=== PATIENT | male | born 1940 | race Caucasian/White ===

== ENCOUNTER 2019-07-26 11:08 | Outpatient (RCR) | payer MEDICARE, MEDICAID, SELFPAY ==
[2019-07-26 13:00] VITALS: BP 139/82; BP 155/87; PULSE 81; RESP 16; O2SAT 97; BMI 38.5
[2019-07-26 13:02] VITALS: BP 106/76
== END 2019-10-24 23:59 | disposition home or self-care (01) ==
PROVIDERS: Visit Provider Internal Medicine Cardiovascular Disease
DX: Z95.2 Presence of prosthetic heart valve (principal)
CPT/HCPCS: 93798

== ENCOUNTER 2019-10-30 10:08 | Outpatient (CLI) | payer MEDICARE, SELFPAY ==
[2019-10-30 10:30] LABS: Basophils Absolute Auto 0.12 K/mm3 (0.00-0.10); Basophils Percent Auto 1.4 % (0.0-1.0); Eosinophils Absolute Auto 0.78 K/mm3 (0.02-0.50); Eosinophils Percent Auto 9.1 % (1.0-6.0); Hematocrit 52.5 % (37.0-46.0); Hemoglobin 16.4 g/dL (12.4-15.3); Immature Granulocyte Absolute 0.05 K/mm3 (0.00-0.00); Immature Granulocyte Percent A 0.6 % (0.0-0.0); Lymphocytes Absolute Auto 1.48 K/mm3 (1.10-4.50); Lymphocytes Percent Auto 17.3 % (18.0-42.0); Mean Corpuscular HGB Conc 31.2 g/dL (32.0-36.0); Mean Corpuscular Volume 86.3 fL (78.0-102.0); Mean Platelet Volume 11.6 fl (8.7-11.0); Monocytes Absolute Auto 1.09 K/mm3 (0.10-0.90); Monocytes Percent Auto 12.8 % (2.0-11.0); Neutrophils Percent Auto 58.8 % (50.0-70.0); Platelet Count Result 155 K/mm3 (150-420); Red Blood Count 6.08 M/mm3 (4.70-6.10); White Blood Count 8.5 K/mm3 (4.8-10.8)
[2019-10-30 10:46] LABS: Hemoglobin A1C 7.9 % (<5.7)
[2019-10-30 10:58] LABS: BNP 221 pg/mL (0-100)
[2019-10-30 11:17] LABS: Alanine Aminotransferase 26 U/L (16-63); Albumin Level 3.9 g/dL (3.4-5.0); Alkaline Phosphatase 51 U/L (46-116); Anion Gap 15.9 mmol/L (7-16); Aspartate Amino Transferase 27 U/L (15-37); Bilirubin,Total 0.7 mg/dL (0.00-1.00); Blood Urea Nitrogen 34 mg/dL (7-18); Carbon Dioxide 27 mmol/L (21-32); Chloride 105 mmol/L (98-108); Estimated Glomerular Filt Rate 37; Glucose 187 mg/dL (70-99); Osmolality Calculated 308 mOsm/kg (285-295); Potassium 4.9 mmol/L (3.5-5.1); Sodium 143 mmol/L (136-145); Total Protein 8.2 g/dL (6.4-8.2)
== END 2019-10-30 10:09 | disposition home or self-care (01) ==
LOC: CHSLAB 10:12
PROVIDERS: PCP Internal Medicine; Visit Provider Internal Medicine
DX: I50.9 Heart failure, unspecified (principal); E11.9 Type 2 diabetes mellitus without complications
CPT/HCPCS: 36415; 80053; 83036; 83880; 85025

== ENCOUNTER 2019-10-31 10:00 | Outpatient (RCR) | payer MEDICARE, MEDICAID, SELFPAY ==
[2019-10-25 00:04] VITALS: BP 106/76; PULSE 81; RESP 16; O2SAT 97; BMI 38.5
== END 2019-11-14 12:48 | disposition home or self-care (01) ==
PROVIDERS: PCP Internal Medicine; Visit Provider Internal Medicine Cardiovascular Disease
DX: Z95.2 Presence of prosthetic heart valve (principal)
CPT/HCPCS: 93798

== ENCOUNTER 2020-01-30 11:34 | Outpatient (CLI) | payer MEDICARE, SELFPAY ==
[2020-01-30 12:16] LABS: Hemoglobin A1C 7.3 % (<5.7)
== END 2020-01-30 11:35 | disposition home or self-care (01) ==
LOC: CHSLAB 11:36
PROVIDERS: PCP Internal Medicine; Visit Provider Internal Medicine
DX: E11.9 Type 2 diabetes mellitus without complications (principal)
CPT/HCPCS: 36415; 83036

== ENCOUNTER 2020-05-05 10:27 | Outpatient (CLI) | payer MEDICARE, MEDICAID, SELFPAY ==
[2020-05-05 10:38] LABS: Basophils Absolute Auto 0.09 K/mm3 (0.00-0.10); Basophils Percent Auto 0.9 % (0.0-1.0); Eosinophils Absolute Auto 0.91 K/mm3 (0.02-0.50); Eosinophils Percent Auto 9.2 % (1.0-6.0); Hemoglobin 16.3 g/dL (12.4-15.3); Immature Granulocyte Absolute 0.05 K/mm3 (0.00-0.00); Immature Granulocyte Percent A 0.5 % (0.0-0.0); Lymphocytes Absolute Auto 1.26 K/mm3 (1.10-4.50); Lymphocytes Percent Auto 12.7 % (18.0-42.0); Mean Corpuscular Hemoglobin 28.6 pg (27.0-31.0); Mean Corpuscular Volume 89.6 fL (78.0-102.0); Mean Platelet Volume 10.8 fl (8.7-11.0); Monocytes Absolute Auto 1.14 K/mm3 (0.10-0.90); Monocytes Percent Auto 11.5 % (2.0-11.0); Neutrophils Absolute Auto 6.5 K/mm3 (1.7-7.2); Neutrophils Percent Auto 65.2 % (50.0-70.0); Platelet Count Result 159 K/mm3 (150-420); Red Blood Count 5.69 M/mm3 (4.70-6.10); Red Cell Distribution Width 13.6 % (11.6-14.4); White Blood Count 9.9 K/mm3 (4.8-10.8)
[2020-05-05 11:05] LABS: Hemoglobin A1C 8.4 % (<5.7)
[2020-05-05 11:16] LABS: Alanine Aminotransferase 38 U/L (16-63); Albumin Level 3.6 g/dL (3.4-5.0); Alkaline Phosphatase 43 U/L (46-116); Anion Gap 9 mmol/L (8-16); Aspartate Amino Transferase 35 U/L (15-37); Bilirubin,Total 0.9 mg/dL (0.00-1.00); Blood Urea Nitrogen 28 mg/dL (7-18); Calcium 10.5 mg/dL (8.5-10.1); Carbon Dioxide 28 mmol/L (21-32); Chloride 103 mmol/L (98-108); Estimated Glomerular Filt Rate 37; Glucose 175 mg/dL (70-99); Osmolality Calculated 299 mOsm/kg (285-295); Potassium 4.7 mmol/L (3.5-5.1); Sodium 140 mmol/L (136-145); Total Protein 7.9 g/dL (6.4-8.2)
[2020-05-05 12:01] LABS: BNP 211 pg/mL (0-100)
== END 2020-05-05 10:28 | disposition home or self-care (01) ==
PROVIDERS: PCP Internal Medicine; Visit Provider Internal Medicine
DX: I12.9 Hypertensive chronic kidney disease with stage 1 through stage 4 chronic kidney disease, or unspecified chronic kidney disease (principal); N18.2 Chronic kidney disease, stage 2 (mild); E11.9 Type 2 diabetes mellitus without complications; I50.9 Heart failure, unspecified
CPT/HCPCS: 36415; 80053; 83036; 83880; 85025

== ENCOUNTER 2020-08-14 08:55 | Outpatient (CLI) | payer MEDICARE, SELFPAY ==
[2020-08-14 10:02] LABS: Hemoglobin A1C 7.5 % (<5.7)
[2020-08-14 10:43] LABS: Alanine Aminotransferase 29 U/L (16-63); Albumin Level 4.1 g/dL (3.4-5.0); Alkaline Phosphatase 41 U/L (46-116); Anion Gap 9 mmol/L (8-16); Aspartate Amino Transferase 30 U/L (15-37); Bilirubin,Total 0.9 mg/dL (0.00-1.00); Blood Urea Nitrogen 31 mg/dL (7-18); Calcium 9.9 mg/dL (8.5-10.1); Carbon Dioxide 29 mmol/L (21-32); Chloride 104 mmol/L (98-108); Estimated Glomerular Filt Rate 41; Glucose 101 mg/dL (70-99); Osmolality Calculated 300 mOsm/kg (285-295); Potassium 4.5 mmol/L (3.5-5.1); Sodium 142 mmol/L (136-145); Total Protein 8.4 g/dL (6.4-8.2)
== END 2020-08-14 08:56 | disposition home or self-care (01) ==
LOC: CHSLAB 08:57
PROVIDERS: PCP Internal Medicine; Visit Provider Internal Medicine
DX: E11.9 Type 2 diabetes mellitus without complications (principal)
CPT/HCPCS: 36415; 80053; 83036

== ENCOUNTER 2020-12-16 14:25 | Outpatient (CLI) | payer MEDICARE, SELFPAY ==
[2020-12-16 14:56] LABS: Alanine Aminotransferase 23 U/L (16-63); Albumin Level 3.2 g/dL (3.4-5.0); Alkaline Phosphatase 50 U/L (46-116); Anion Gap 8 mmol/L (8-16); Aspartate Amino Transferase 35 U/L (15-37); Bilirubin,Total 0.7 mg/dL (0.00-1.00); Blood Urea Nitrogen 30 mg/dL (7-18); Calcium 9.6 mg/dL (8.5-10.1); Carbon Dioxide 28 mmol/L (21-32); Chloride 101 mmol/L (98-108); Estimated Glomerular Filt Rate 36; Glucose 109 mg/dL (70-99); Osmolality Calculated 291 mOsm/kg (285-295); Potassium 4.7 mmol/L (3.5-5.1); Sodium 137 mmol/L (136-145); Total Protein 7.9 g/dL (6.4-8.2)
== END 2020-12-16 14:26 | disposition home or self-care (01) ==
LOC: CHSLAB 14:28
PROVIDERS: PCP Internal Medicine; Visit Provider Internal Medicine
DX: R79.9 Abnormal finding of blood chemistry, unspecified (principal); E11.9 Type 2 diabetes mellitus without complications
CPT/HCPCS: 36415; 80053; 83036

== ENCOUNTER 2021-01-01 12:08 | Outpatient (CLI) | payer MEDICARE, SELFPAY ==
[2021-01-01 12:24] LABS: Eosinophils Absolute Auto 0.07 K/mm3 (0.02-0.50); Eosinophils Percent Auto 0.7 % (1.0-6.0); Hematocrit 52.1 % (37.0-46.0); Hemoglobin 16.6 g/dL (12.4-15.3); Immature Granulocyte Absolute 0.15 K/mm3 (0.00-0.00); Immature Granulocyte Percent A 1.5 % (0.0-0.0); Lymphocytes Absolute Auto 1.29 K/mm3 (1.10-4.50); Lymphocytes Percent Auto 12.7 % (18.0-42.0); Mean Corpuscular HGB Conc 31.9 g/dL (32.0-36.0); Mean Corpuscular Hemoglobin 27.7 pg (27.0-31.0); Mean Platelet Volume 10.3 fl (8.7-11.0); Monocytes Absolute Auto 1.17 K/mm3 (0.10-0.90); Monocytes Percent Auto 11.5 % (2.0-11.0); Neutrophils Absolute Auto 7.4 K/mm3 (1.7-7.2); Neutrophils Percent Auto 72.6 % (50.0-70.0); Platelet Count Result 306 K/mm3 (150-420); Red Blood Count 5.99 M/mm3 (4.70-6.10); Red Cell Distribution Width 14.1 % (11.6-14.4); White Blood Count 10.2 K/mm3 (4.8-10.8)
[2021-01-01 13:11] LABS: Alanine Aminotransferase 10 U/L (16-63); Albumin Level 2.9 g/dL (3.4-5.0); Alkaline Phosphatase 68 U/L (46-116); Anion Gap 11 mmol/L (8-16); Aspartate Amino Transferase 27 U/L (15-37); Bilirubin,Total 0.9 mg/dL (0.00-1.00); Blood Urea Nitrogen 31 mg/dL (7-18); Calcium 9.6 mg/dL (8.5-10.1); Carbon Dioxide 26 mmol/L (21-32); Chloride 100 mmol/L (98-108); Estimated Glomerular Filt Rate 47; Glucose 169 mg/dL (70-99); Osmolality Calculated 294 mOsm/kg (285-295); Potassium 4.9 mmol/L (3.5-5.1); Sodium 137 mmol/L (136-145); Total Protein 7.8 g/dL (6.4-8.2)
[2021-01-01 14:00] LABS: NT Pro B Type Natriuretic Pept 1536
== END 2021-01-01 12:09 | disposition home or self-care (01) ==
LOC: CHSLAB 12:10
PROVIDERS: PCP Internal Medicine; Visit Provider Internal Medicine
DX: R79.89 Other specified abnormal findings of blood chemistry (principal); I50.9 Heart failure, unspecified
CPT/HCPCS: 36415; 80053; 83880; 85025

== ENCOUNTER 2021-05-11 11:27 | Outpatient (CLI) | payer MEDICARE, SELFPAY ==
[2021-05-11 11:40] LABS: Basophils Absolute Auto 0.07 K/mm3 (0.00-0.10); Basophils Percent Auto 0.9 % (0.0-1.0); Eosinophils Absolute Auto 0.58 K/mm3 (0.02-0.50); Eosinophils Percent Auto 7.1 % (1.0-6.0); Hemoglobin 14.4 g/dL (12.4-15.3); Immature Granulocyte Absolute 0.02 K/mm3 (0.00-0.00); Immature Granulocyte Percent A 0.2 % (0.0-0.0); Lymphocytes Absolute Auto 1.34 K/mm3 (1.10-4.50); Lymphocytes Percent Auto 16.3 % (18.0-42.0); Mean Corpuscular HGB Conc 30.6 g/dL (32.0-36.0); Mean Corpuscular Volume 78.3 fL (78.0-102.0); Mean Platelet Volume 10.3 fl (8.7-11.0); Monocytes Absolute Auto 1.05 K/mm3 (0.10-0.90); Monocytes Percent Auto 12.8 % (2.0-11.0); Neutrophils Absolute Auto 5.1 K/mm3 (1.7-7.2); Neutrophils Percent Auto 62.7 % (50.0-70.0); Platelet Count Result 231 K/mm3 (150-420); Red Cell Distribution Width 14.7 % (11.6-14.4); White Blood Count 8.2 K/mm3 (4.8-10.8)
[2021-05-11 13:11] LABS: Alanine Aminotransferase 38 U/L (16-63); Albumin Level 3.7 g/dL (3.4-5.0); Alkaline Phosphatase 69 U/L (46-116); Anion Gap 10 mmol/L (8-16); Aspartate Amino Transferase 35 U/L (15-37); Bilirubin,Total 0.5 mg/dL (0.00-1.00); Blood Urea Nitrogen 29 mg/dL (7-18); Calcium 9.8 mg/dL (8.5-10.1); Carbon Dioxide 26 mmol/L (21-32); Chloride 103 mmol/L (98-108); Estimated Glomerular Filt Rate 53; Glucose 170 mg/dL (70-99); Osmolality Calculated 297 mOsm/kg (285-295); Potassium 4.9 mmol/L (3.5-5.1); Sodium 139 mmol/L (136-145); Total Protein 8.1 g/dL (6.4-8.2)
[2021-05-11 15:14] LABS: Hemoglobin A1C 6.4 % (<5.7)
== END 2021-05-11 11:28 | disposition home or self-care (01) ==
LOC: CHSLAB 11:29
PROVIDERS: PCP Internal Medicine; Visit Provider Internal Medicine
DX: E11.9 Type 2 diabetes mellitus without complications (principal); N18.2 Chronic kidney disease, stage 2 (mild)
CPT/HCPCS: 36415; 80053; 83036; 85025

== ENCOUNTER 2021-05-25 14:43 | Outpatient (CLI) | payer MEDICARE, SELFPAY ==
[2021-05-25 15:04] LABS: Basophils Absolute Auto 0.09 K/mm3 (0.00-0.10); Basophils Percent Auto 1.2 % (0.0-1.0); Eosinophils Absolute Auto 0.66 K/mm3 (0.02-0.50); Eosinophils Percent Auto 8.5 % (1.0-6.0); Hematocrit 46.5 % (37.0-46.0); Hemoglobin 14.3 g/dL (12.4-15.3); Immature Granulocyte Absolute 0.03 K/mm3 (0.00-0.00); Immature Granulocyte Percent A 0.4 % (0.0-0.0); Lymphocytes Absolute Auto 1.28 K/mm3 (1.10-4.50); Lymphocytes Percent Auto 16.6 % (18.0-42.0); Mean Corpuscular HGB Conc 30.8 g/dL (32.0-36.0); Mean Corpuscular Volume 77.9 fL (78.0-102.0); Mean Platelet Volume 10.4 fl (8.7-11.0); Monocytes Absolute Auto 1.03 K/mm3 (0.10-0.90); Monocytes Percent Auto 13.3 % (2.0-11.0); Neutrophils Absolute Auto 4.6 K/mm3 (1.7-7.2); Platelet Count Result 228 K/mm3 (150-420); Red Blood Count 5.97 M/mm3 (4.70-6.10); Red Cell Distribution Width 15.8 % (11.6-14.4); White Blood Count 7.7 K/mm3 (4.8-10.8)
[2021-05-25 16:13] LABS: Alanine Aminotransferase 29 U/L (16-63); Albumin Level 3.4 g/dL (3.4-5.0); Alkaline Phosphatase 63 U/L (46-116); Anion Gap 13 mmol/L (8-16); Aspartate Amino Transferase 28 U/L (15-37); Bilirubin,Total 0.4 mg/dL (0.00-1.00); Blood Urea Nitrogen 36 mg/dL (7-18); Calcium 9.4 mg/dL (8.5-10.1); Carbon Dioxide 25 mmol/L (21-32); Chloride 104 mmol/L (98-108); Estimated Glomerular Filt Rate 52; Glucose 120 mg/dL (70-99); Osmolality Calculated 303 mOsm/kg (285-295); Potassium 4.6 mmol/L (3.5-5.1); Sodium 142 mmol/L (136-145); Total Protein 7.5 g/dL (6.4-8.2)
[2021-05-25 16:19] LABS: Prostate Specific Antigen 0.1 ng/mL (< OR = 4.0)
== END 2021-05-25 14:44 | disposition home or self-care (01) ==
PROVIDERS: PCP Internal Medicine; Visit Provider Internal Medicine
DX: N39.0 Urinary tract infection, site not specified (principal); Z85.46 Personal history of malignant neoplasm of prostate
CPT/HCPCS: 36415; 80053; 84153; 85025; 87077; 87086; 87088; 87186

== ENCOUNTER 2021-08-26 08:10 | Outpatient (CLI) | payer MEDICARE, SELFPAY ==
[2021-08-26 08:22] LABS: Hematocrit 51.1 % (37.0-46.0); Hemoglobin 15.8 g/dL (12.4-15.3); Mean Corpuscular HGB Conc 30.9 g/dL (32.0-36.0); Mean Corpuscular Hemoglobin 25.3 pg (27.0-31.0); Mean Corpuscular Volume 81.8 fL (78.0-102.0); Mean Platelet Volume 10.1 fl (8.7-11.0); Platelet Count Result 206 K/mm3 (150-420); Red Blood Count 6.25 M/mm3 (4.70-6.10); Red Cell Distribution Width 18.1 % (11.6-14.4); White Blood Count 8.4 K/mm3 (4.8-10.8)
[2021-08-26 08:42] LABS: Hemoglobin A1C 6.5 % (<5.7)
[2021-08-26 09:10] LABS: Band Neutrophils Percent 0 % (0-6); Eosinophils Absolute Manual 0.75 K/mm3 (0.02-0.5); Eosinophils Percent Manual 9 % (1-6); Lymphocytes Absolute Manual 1.76 K/mm3 (1.1-4.5); Lymphocytes Percent Manual 21 % (18-44); Monocytes Absolute Manual 0.58 K/mm3 (0.1-0.90); Monocytes Percent Manual 7 % (3-9); Neutrophils Absolute Manual 5.29 K/mm3 (1.3-6.7); Neutrophils Percent Manual 63 % (46-73); Platelet Estimate Adequate (Adequate); Total Cells Counted 100
[2021-08-26 09:20] LABS: Alanine Aminotransferase 24 U/L (16-63); Albumin Level 3.8 g/dL (3.4-5.0); Alkaline Phosphatase 55 U/L (46-116); Anion Gap 10 mmol/L (8-16); Aspartate Amino Transferase 26 U/L (15-37); Bilirubin,Total 0.7 mg/dL (0.00-1.00); Blood Urea Nitrogen 37 mg/dL (7-18); Calcium 10.4 mg/dL (8.5-10.1); Carbon Dioxide 28 mmol/L (21-32); Chloride 103 mmol/L (98-108); Cholesterol 121 mg/dL (0-200); Estimated Glomerular Filt Rate 46; Glucose 126 mg/dL (70-99); HDL Direct 47 mg/dL (40-60); LDL Cholesterol Calculated 58 mg/dL (<130); Osmolality Calculated 302 mOsm/kg (285-295); Potassium 4.6 mmol/L (3.5-5.1); Sodium 141 mmol/L (136-145); Total Protein 8.3 g/dL (6.4-8.2); Triglycerides 78 mg/dL (0-150)
== END 2021-08-26 08:11 | disposition home or self-care (01) ==
LOC: CHSLAB 08:11
PROVIDERS: PCP Internal Medicine; Visit Provider Internal Medicine
DX: E11.9 Type 2 diabetes mellitus without complications (principal)
CPT/HCPCS: 36415; 80053; 80061; 83036; 85025

== ENCOUNTER 2021-09-24 09:20 | Inpatient (IN) | payer MEDICARE, MEDICAID, SELFPAY ==
[2021-09-24] VITALS (12 sets, daily range): BP systolic 71–103; BP diastolic 46–76; PULSE 91–115; RESP 16–20; TEMP 36.6–38.2; O2SAT 90–99; BMI 29.5
--- NOTE | ~2021-09-24 | CT_ITS ---
EXAMINATION: CT chest abdomen pelvis wo con DATE: 09/25/2021 09:55 INDICATION: Septic shock. TECHNIQUE: Computed tomography (CT) of the chest, abdomen, and pelvis was performed without intraveno us contrast. Automated exposure control and iterative reconstruction technique were employed. The dos e-length product was 1549.84 mGy-cm. COMPARISON: CT abdomen and pelvis 08/19/2016 FINDINGS: CHEST CT: Motion artifact is noted. There are small pleural effusions, right worse than left. There are depende nt airspace opacities in the lower lobes and right upper lobe, likely atelectasis. There is mild scar ring and bronchiectasis in lingula. Cardiomegaly is noted. There are coronary artery calcifications. There are changes of aortic valve replacement. No pericardial effusion. Bilateral gynecomastia is not ed. There is mild thoracic spondylosis. There is an old fracture of left clavicle. ABDOMEN/PELVIS CT: There is diffuse hepatic steatosis. There are changes of cholecystectomy. The spleen is normal. There is a chronic 9.0 x 2.7 cm mass abutting the body and tail the pancreas, consistent with chronic panc reatitis with walled-off necrosis. The adrenal glands are normal. There are cysts in the kidneys sheron uring up to 6.3 cm on the left. There is a left inguinal hernia containing fat. There are brachythera py seeds in the prostate. There is diverticulosis of the colon without evidence of diverticulitis. Th e appendix is normal. Stool distends the rectum. There is mild periportal lymphadenopathy, likely claudia ctive. There is fat stranding in the retroperitoneum bilaterally. There is no free intraperitoneal fl uid. There is moderate lumbar spondylosis. IMPRESSION: 1. Small pleural effusions. 2. Chronic 9.0 x 2.7 cm mass abutting the body and tail of the pancreas, consistent with chronic panc reatitis with walled-off necrosis. 3. Stool distends the rectum. 4. Mild periportal lymphadenopathy, likely reactive. Reviewed, dictated and finalized at location B. RIAL ADVISER IMPRESSION: 1. Small pleural effusions. 2. Chronic 9.0 x 2.7 cm mass abutting the body and tail of the pancreas, consis tent with chronic pancreatitis with walled-off necrosis. 3. Stool distends the rectum. 4. Mild periportal lymphadenopathy, likely reactive.
--- NOTE | ~2021-09-24 | XR_ITS ---
EXAMINATION: XR chest 1V portable DATE: 09/24/2021 10:28 INDICATION: Cough and shortness of breath. TECHNIQUE: A single frontal view of the chest was obtained. COMPARISON: Chest single view 08/25/2016, CT abdomen and pelvis 02/08/2015 FINDINGS: There is no pneumonia, pleural effusion, or pneumothorax. The heart size is normal. There a re changes of aortic valve replacement. There is a small hiatal hernia. IMPRESSION: 1. Small hiatal hernia. Reviewed, dictated and finalized at location B. ICE DESK TECHNICIAN IMPRESSION: 1. Small hiatal hernia.
--- NOTE | 2021-09-24 09:38 | PC.NURSE ---
2 unsuccessful IV attempts
--- NOTE | 2021-09-24 09:40 | ECG_ITS ---
Measurements Intervals [place] Rate: 110 P: OR: 0 QRS: 162 QRSD: 110 T: -2 QT: 322 QTc: 436 Interpretive Statements ATRIAL FIBRILLATION WITH RAPID VENTRICULAR RESPONSE VENTRICULAR PREMATURE COMPLEX RIGHT AXIS DEVIATION INCOMPLETE RIGHT BUNDLE BRANCH BLOCK BORDERLINE R WAVE PROGRESSION, ANTERIOR LEADS BORDERLINE ST-T WAVE ABNORMALITY- INFERIOR LEADS BASELINE ARTIFACT- I, II, AVR, AVF, V1 ABNORMAL ECG Electronically Signed On 09-24-2021 10:45:35 DIETARY SUPERVISOR by Sj Cullen D.O.
[2021-09-24 10:03] LABS: Basophils Absolute Auto 0.04 K/mm3 (0.00-0.10); Basophils Percent Auto 0.6 % (0.0-1.0); Eosinophils Absolute Auto 0.01 K/mm3 (0.02-0.50); Eosinophils Percent Auto 0.1 % (1.0-6.0); Hematocrit 50.4 % (37.0-46.0); Immature Granulocyte Absolute 0.04 K/mm3 (0.00-0.00); Immature Granulocyte Percent A 0.6 % (0.0-0.0); Lymphocytes Absolute Auto 0.16 K/mm3 (1.10-4.50); Lymphocytes Percent Auto 2.3 % (18.0-42.0); Mean Corpuscular HGB Conc 31.7 g/dL (32.0-36.0); Mean Corpuscular Hemoglobin 25.6 pg (27.0-31.0); Mean Corpuscular Volume 80.8 fL (78.0-102.0); Mean Platelet Volume 10.5 fl (8.7-11.0); Monocytes Percent Auto 2.9 % (2.0-11.0); Neutrophils Absolute Auto 6.5 K/mm3 (1.7-7.2); Neutrophils Percent Auto 93.5 % (50.0-70.0); Platelet Count Result 145 K/mm3 (150-420); Red Blood Count 6.24 M/mm3 (4.70-6.10); White Blood Count 6.9 K/mm3 (4.8-10.8)
[2021-09-24 10:04] LABS: Appearance Urine Clear (Clear); Bilirubin Urine Negative (Negative); Color Urine Light Yellow (Yellow); Glucose Urine UA 3+ (Negative); Ketones Urine Negative (Negative); Leukocyte Esterase Ur Negative (Negative); Nitrate Urine Negative (Negative); Protein Urine Negative (Negative); Urobilinogen Urine 0.2 mg/dL (0.2-1.0)
[2021-09-24 10:10] LABS: Add Urine Microscopic? YES; Bacteria Urine None seen /hpf; Blood Urine Trace-Intact (Negative); RBC Urine None seen /hpf (0-2); WBC Urine None seen /hpf (0-3)
[2021-09-24 10:13] LABS: SARS-CoV-2 RNA PCR Negative (Negative)
[2021-09-24] MEDS: SODIUM CHLORIDE 0.9% IV 1,000 ML 999 ML IV CONT ×5 (10:14→15:00)
[2021-09-24 10:20] LABS: INR 1.3; Partial Thromboplastin Time 28.3 SEC (23.90-30.70); Prothrombin Time 13.5 Seconds (9.50-12.10)
[2021-09-24 10:31] LABS: Alanine Aminotransferase 16 U/L (16-63); Albumin Level 3.5 g/dL (3.4-5.0); Alkaline Phosphatase 42 U/L (46-116); Anion Gap 17 mmol/L (8-16); Aspartate Amino Transferase 36 U/L (15-37); Blood Urea Nitrogen 39 mg/dL (7-18); Calcium 9.3 mg/dL (8.5-10.1); Carbon Dioxide 20 mmol/L (21-32); Chloride 104 mmol/L (98-108); Estimated CRCL calculation 29 ml/min; Estimated Glomerular Filt Rate 32; Glucose 128 mg/dL (70-99); Osmolality Calculated 303 mOsm/kg (285-295); Potassium 3.4 mmol/L (3.5-5.1); Sodium 141 mmol/L (136-145); Thyroid Stimulating Hormone 1.69 uIU/mL (0.36-3.74); Total Protein 7.8 g/dL (6.4-8.2)
[2021-09-24 10:32] LABS: Troponin I 1075.1 ng/L (0.00-60.4)
[2021-09-24 10:33] LABS: CRP 2.3 mg/dL (0.0-0.9)
--- NOTE | 2021-09-24 11:05 | ED.SOB ---
HPI - SOB/Dyspnea General Chief Complaint: Fever Stated Complaint: AMBULANCE Source: patient and EMS Mode of arrival: EMS History of Present Illness HPI Narrative: this is an 81-year-old gentleman presents via EMS with some dyspnea with increasing weakness over the last few hours and EMS was called, the patient according to family is little more confused with a elevated temperature, currently not having any chest pain or shortness of breath no abdominal pain no nausea vomiting no diarrhea constipation patient with a history of [place] with 3 stents placed back in 2007, with history of atrial fibrillation, aortic valve replacement and history of CHF along with diabetes. Patient denies having any dysuria no flank discomfort does have a temperature 100.8?. MD elicited complaint: shortness of breath Onset (ago): hour(s) Severity: moderate Related Data Home Medications Medication Instructions Recorded Confirmed apixaban [Eliquis] 5 mg PO BID 09/24/21 09/24/21 diltiazem HCl 120 mg PO DAILY 09/24/21 09/24/21 empagliflozin [Jardiance] 25 mg PO DAILY 09/24/21 09/24/21 fenofibric acid (choline) 135 mg PO DAILY 09/24/21 09/24/21 insulin glargine [Lantus Solostar 15 unit SUBCUT HS 09/24/21 09/24/21 U-100 Insulin] insulin glargine [Lantus Solostar 15 unit SUBCUT QAM 09/24/21 09/24/21 U-100 Insulin] linagliptin-metformin [Jentadueto] 1 tablet PO BID 09/24/21 09/24/21 metoprolol tartrate 50 mg PO BID 09/24/21 09/24/21 simvastatin 40 mg PO DAILY 09/24/21 09/24/21 Allergies Allergy/AdvReac Type Severity Reaction Status Date / Time morphine AdvReac Intermediate aggressive/ Verified 09/24/21 10:42 hallucinati ons Review of Systems Review of Systems: All systems reviewed & are unremarkable except as noted in HPI and below PMFSH Past Medical History Medical History Afib CHF (congestive heart failure) Diabetes mellitus Social History Social History Smoking status: Former smoker Tobacco type: cigarettes Second hand tobacco smoke exposure: No Exam Const: General: no acute distress, confusion and ill appearing HENMT: Head: normal to inspection Eyes: Conjunctivae: conjunctivae normal Pupils: Equal, round and reactive pupils present EOM: EOMs intact bilaterally Direct Ophthalmoscopy: no photophobia Neck: Neck: normal visual inspection, no lymphadenopathy and no meningeal signs Chest: Chest palpation & inspection: normal inspection of the chest Resp: Effort & Inspection: normal respiratory effort Auscultation: clear to auscultation bilaterally Cardio: Rate: regular rate and tachycardic Rhythm: abnormal rhythm GI: GI Palp: Yes Soft to palpation Percussion: Yes normal to percussion Urinary Catheter: Urinary Catheter: patent and draining Back/Spine/Pelvis: Back: no CVA tenderness Skin: General skin exam: normal color Rashes: no rashes Neuro: General: patient oriented x3 and moves all extremities Extrem: General: normal to inspection and no pedal edema Psych: Mental Status: mental status grossly normal Course Course Emergency Course: EKG EKG labs were reviewed with patient and family talked to Cardiology which I feel this is noncardiac patient with fever negative COVID history of diabetes history amputation blood cultures have been patient received 3.375g of Zosyn received 2L bolus of fluids and 1/3L will be started. talked to family and patient does have an advance directive which shows no intubations but CPR. Vital Signs Vital signs: Vital Signs Temperature 38.2 C H 09/24/21 10:08 Pulse Rate 115 H 09/24/21 10:08 Respiratory Rate 09/24/21 10:08 Blood Pressure 97/58 L 09/24/21 10:08 Pulse Oximetry 96 09/24/21 10:08 Temperature 38.2 C H 09/24/21 10:08 Pulse Rate 115 H 09/24/21 10:08 Respiratory Rate 20 09/24/21 10:08 Blood Pressure 97/58 L 09/24/21 10:08
[2021-09-24] MEDS: ASPIRIN 81 MG CHEWABLE TABLET 324 MG PO (11:47)
[2021-09-24 12:59] LABS: Reflex Lactic Acid Yes or No Add Lactic
[2021-09-24 13:49] LABS: Lactic Acid 4.8 mmol/L (0.4-2.0)
--- NOTE | 2021-09-24 14:55 | PM.IMHP ---
H&P: HPI History of Present Illness Date/Time: 09/24/21 14:55 this is a 81-year-old male who presented to our emergency department with dyspnea and increased weakness over the last few hours. Patient has a past medical history of A. fib, congestive heart failure, history of [place] with 3 stents, aortic valve replacement and diabetes. Patient is a poor historian all information obtained from medical records. Patient remains confused. Vital signs 91, 20, 98% on 3 L nasal cannula, 86/59 map of 58, WBC 6.9, hemoglobin 16 point hematocrit 2.4, platelets sodium 141, potassium 3.4, BUN 39, creatinine 1.99, lactic acid 4.0, troponin 1075.1, liver function test within normal limits CRP 2.3 TSH 1.69 UA positive for glucose blood COVID-negative chest x-ray unremarkable EKG A. fib with RVR heart rate of 110 . We attempt to get patient transferred to outside hospital to ICU [facility] NO WAIT LIST [place]- WAIT LIST [facility]- NO WAIT LIST [facility]-WAIT LIST Chief Complaint: ams Review of Systems Review of Systems: ROS unobtainable: Yes unobtainable due to mental status PMFSH Past Medical History Medical History Afib CHF (congestive heart failure) Diabetes mellitus Social History Social History Smoking status: Former smoker Tobacco type: cigarettes Second hand tobacco smoke exposure: No Alcohol intake: never Substance use: former Spiritual care concerns: No Meds Home Medications and Allergies Home Medications Medication Instructions Recorded Confirmed Type apixaban [Eliquis] 5 mg PO BID 09/24/21 09/24/21 History diltiazem HCl 120 mg PO DAILY 09/24/21 09/24/21 History empagliflozin [Jardiance] 25 mg PO DAILY 09/24/21 09/24/21 History fenofibric acid (choline) 135 mg PO DAILY 09/24/21 09/24/21 History insulin glargine [Lantus Solostar 15 unit SUBCUT HS 09/24/21 09/24/21 History U-100 Insulin] insulin glargine [Lantus Solostar 15 unit SUBCUT QAM 09/24/21 09/24/21 History U-100 Insulin] linagliptin-metformin [Jentadueto] 1 tablet PO BID 09/24/21 09/24/21 History metoprolol tartrate 50 mg PO BID 09/24/21 09/24/21 History simvastatin 40 mg PO DAILY 09/24/21 09/24/21 History Allergies Allergy/AdvReac Type Severity Reaction Status Date / Time morphine AdvReac Intermediate aggressive/ Verified 09/24/21 10:42 hallucinati ons Vital Signs Vital Signs - 24 hr 09/24/21 09:20 09/24/21 10:08 09/24/21 10:46 Temperature 100.7 F H Pulse Rate 115 H 115 H 111 H Respiratory Rate 20 20 20 Blood Pressure 71/53 L 97/58 L 103/76 Pulse Oximetry 96 96 90 09/24/21 11:35 09/24/21 11:46 09/24/21 12:45 Temperature Pulse Rate 105 H 102 H 94 Respiratory Rate 20 20 20 Blood Pressure 100/71 94/61 L 85/67 L Pulse Oximetry 99 98 99 09/24/21 13:00 09/24/21 13:27 Temperature Pulse Rate 94 91 Respiratory Rate 20 20 Blood Pressure 88/62 L 86/59 L Pulse Oximetry 96 98 Exam Narrative: GENERAL: Ill appearance with labored breathing and confused, in no apparent distress. HEAD: normocephalic, atraumatic. EYES: PERRL. Sclera clear/white. Vision is grossly intact. EARS: External ears normal, auditory canals clear and without drainage, TMs normal without perforation. Hearing grossly intact. NOSE: External nose normal with no obvious nasal discharge, nares without redness, no rhinorrhea. THROAT: Mucous membranes moist, posterior pharynx clear. NECK: Neck supple, non-tender without lymphadenopathy, masses or thyromegaly. CARDIOVASCULAR: Irregular rate and irrhythm without murmurs, gallops, or rubs. RESPIRATORY: Clear to auscultation. Breath sounds equal bilaterally. No wheezes, rales, or rhonchi. GASTROINTESTINAL: Abdomen soft, non-tender, nondistended. Bowel sounds are active. No hepato-splenomegaly, or palpable masses. No guarding. SKIN: warm, intact with no suspicious lesions or rash, good texture and t
[2021-09-24] MEDS: ALBUMIN HUMAN 25% 25 GM/100 ML 100 ML IVPB (15:00)
[2021-09-24] MEDS: ASPIRIN 325 MG ENTERIC TABLET PO (15:25)
[2021-09-24] MEDS: DOPamine 400 MG/D5W 250 ML 400 MG/250 ML BAG 18 MG IV CONT (16:26)
[2021-09-24 16:48] LABS: NT Pro B Type Natriuretic Pept 2569 pg/mL (0-450)
[2021-09-24 17:16] LABS: Glucose Point of Care 167 mg/dl (65-105)
[2021-09-24 17:49] LABS: Troponin I 2064.9 ng/L (0.00-60.4)
[2021-09-24] MEDS: SODIUM CHLORIDE 0.9% IV 1,000 ML 100 ML IV CONT (19:12)
[2021-09-24] MEDS: KCL 20 MEQ/SW 100 ML 100 ML 50 MEQ IVPB (19:29)
--- NOTE | 2021-09-24 19:33 | PC.NURSE ---
1350 pt here from er with low bp and elevated trops. he is alert at times and other times unsure. denies chest pains. bp 78/54 and sonda aware. bolus finished in er. pt was origanlly admit to 203 so with low bp and not always oriented patient moved to 207. 1430 iv in in l ac blew. several attempts and new #20 started in r fa and #22 in l posterior fa. another 1000ml/hr bolus cont. see mar for meds. 1500 albumin started and bolus ns cont. bp78/54 1640 dopamine 5mcg/kg/min bp 80/42 1700 bp 94/51 map 65 1715 bp 98/58 map 67 uses urinal. 1730 bp 96/56 map 70 1745 bp 102/58 map 80. jesica claims he is on waiting list for [facility] in [place]. 1830 bp 96/54 1845 bp 80/48 pulled out r fa iv. incont of stool. restless throwing legs over rails. 1900 bp 106/59 new #20 in r fa. dopamine back @ 5mcg/kg/min. call light use encouraged.
[2021-09-24] MEDS: ACETAMINOPHEN 325 MG TABLET 650 MG PO (19:41)
[2021-09-24] MEDS: LORazepam INJ (*CRX) 2 MG/ML VIAL 0.5 MG IV PUSH (19:42)
[2021-09-24 19:49] LABS: Troponin I 2347.8 ng/L (0.00-60.4)
--- NOTE | 2021-09-24 19:52 | PC.NURSE ---
updated on Troponin level at 2347.8. No new orders.
[2021-09-24 20:12] LABS: Glucose Point of Care 200 mg/dl (65-105)
--- NOTE | 2021-09-24 20:19 | PC.NURSE ---
l inner ankle has dry scabbed area 4cm x2cm. has telfa drg intact.
[2021-09-24] MEDS: INSULIN GLARGINE (*BKC) 100 UNITS/ML 15 UNITS SUB-Q (21:14)
[2021-09-24] MEDS: HEPARIN SODIUM 5,000 UNITS/ML VIAL 5000 UNITS SUB-Q (22:40)
--- NOTE | 2021-09-24 22:43 | PC.NURSE ---
Patient is resting at this times. Alert to self only. Continues to remove telemetry equipment. Can be uncooperative and combative at times.
[2021-09-25] VITALS (8 sets, daily range): BP systolic 82–102; BP diastolic 46–73; PULSE 78–102; RESP 14–22; TEMP 36.6–36.9; O2SAT 94–97
[2021-09-25] MEDS: LORazepam INJ (*CRX) 2 MG/ML VIAL 0.5 MG IV PUSH ×2 (01:00→05:36)
--- NOTE | 2021-09-25 01:01 | PC.NURSE ---
Patient continues to be agitated. Pulled out IV on left arm. Continues to undress and pull telemetry off. doctor notified and new order to increase frequency of lorazapam received
--- NOTE | 2021-09-25 02:01 | PC.NURSE ---
Phone call from [facility]. Patient continues to be on the waitlist. No openings at this time
[2021-09-25] MEDS: SODIUM CHLORIDE 0.9% IV 1,000 ML 100 ML IV CONT ×3 (03:18→12:51)
--- NOTE | 2021-09-25 04:26 | PC.NURSE ---
as lorapam wears off, patient begins pulling at telemetry wires, removing contact points, pulling at IV and attempting to get out of bed. Telemetry inaccurate due to patient interference.
[2021-09-25] MEDS: HEPARIN SODIUM 5,000 UNITS/ML VIAL 5000 UNITS SUB-Q (05:31)
[2021-09-25 07:31] LABS: Hematocrit 54.2 % (37.0-46.0); Hemoglobin 15.7 g/dL (12.4-15.3); Immature Platelet Fraction Pct 3.1 % (1.0-7.0); Mean Corpuscular Volume 89.7 fL (78.0-102.0); Mean Platelet Volume 11.6 fl (8.7-11.0); Platelet Count Result 81 K/mm3 (150-420); Red Blood Count 6.04 M/mm3 (4.70-6.10); Red Cell Distribution Width 17.8 % (11.6-14.4); White Blood Count 17.5 K/mm3 (4.8-10.8)
[2021-09-25 07:51] LABS: Lactic Acid Reflex 5.8 mmol/L (0.4-2.0)
[2021-09-25 07:54] LABS: Band Neutrophils Percent 8 % (0-6); Lymphocytes Absolute Manual 0.17 K/mm3 (1.1-4.5); Lymphocytes Percent Manual 1 % (18-44); Monocytes Absolute Manual 0.35 K/mm3 (0.1-0.90); Monocytes Percent Manual 2 % (3-9); Neutrophils Absolute Manual 16.45 K/mm3 (1.3-6.7); Neutrophils Percent Manual 86 % (46-73); Total Cells Counted 100
[2021-09-25 07:55] LABS: Alanine Aminotransferase 27 U/L (16-63); Alkaline Phosphatase 27 U/L (46-116); Aspartate Amino Transferase 77 U/L (15-37); Bilirubin,Total 0.6 mg/dL (0.00-1.00); Blood Urea Nitrogen 41 mg/dL (7-18); Calcium 8.5 mg/dL (8.5-10.1); Carbon Dioxide 19 mmol/L (21-32); Estimated CRCL calculation 25 ml/min; Estimated Glomerular Filt Rate 28; Glucose 165 mg/dL (70-99); NT Pro B Type Natriuretic Pept 18902 pg/mL (0-450); Platelet Estimate Decreased (Adequate); Total Protein 7.5 g/dL (6.4-8.2)
[2021-09-25 08:13] LABS: Anion Gap 18 mmol/L (8-16); Chloride 107 mmol/L (98-108); Osmolality Calculated 312 mOsm/kg (285-295); Potassium 4.7 mmol/L (3.5-5.1); Sodium 144 mmol/L (136-145)
[2021-09-25 08:18] LABS: CRP < 10.9 mg/dL (0.0-0.9)
[2021-09-25] MEDS: LORazepam INJ (*CRX) 2 MG/ML VIAL 1 MG IV PUSH ×3 (08:29→14:21)
[2021-09-25 11:01] LABS: Reflex Lactic Acid Yes or No Add Lactic
[2021-09-25 11:15] LABS: Glucose Point of Care 200 mg/dl (65-105)
[2021-09-25] MEDS: INSULIN GLARGINE (*BKC) 100 UNITS/ML 15 UNITS SUB-Q (11:20)
[2021-09-25] MEDS: BISACODYL 10 MG SUPPOSITORY RECTAL (12:42)
--- NOTE | 2021-09-25 13:32 | P.PN_ITS ---
Progress Note: A&P Assessment and Plan (1) Sepsis: Qualifiers: Sepsis acute organ dysfunction status: without acute organ dysfunction Sepsis type: sepsis due to unspecified organism Qualified Code(s): A41.9 - Sepsis, unspecified organism <ANNABELLE Mendoza - Last Filed: 09/25/21 15:07> Code(s): A41.9 - Sepsis, unspecified organism <JOSE MendozaC - Last Filed: 09/25/21 15:07> Status: Acute <MODE Mendoza-C - Last Filed: 09/25/21 15:07> Assessment and Plan: * Etiology unknown * Lactic acid4.0>4.8>.8 * Patient received 3 L bolus in ED will now receive 1 L bolus with albumin , dopamine and continue with IV fluid * Attempt to transfer to outside hospital for higher level * WBCs 17 * Chest x-ray no significant info * When patient stabilized we will do a CT of the abdomen * Continue vancomycin and Rocephin * Blood culture * Abdominal CT no significant findings * Albumin given * Continue transfer to outside hospital for higher level of care <Mat Bach MODE-C - Last Filed: 09/25/21 15:07> (2) Elevated troponin I level: Code(s): R77.8 - Other specified abnormalities of plasma proteins <Mat Bach JOSEC - Last Filed: 09/25/21 15:07> Status: Acute <Mat Bach ANNABELLE - Last Filed: 09/25/21 15:07> Assessment and Plan: * [id number]>2064.9>2347.8>3733.5 * EKG indicates A. fib with RVR heart rate of 110 * History of [place] with stent placement * Attempting to transfer to outside hospital for cardiology consult <Mat Bach ANNABELLE - Last Filed: 09/25/21 15:07> (3) Weakness: Code(s): R53.1 - Weakness <Mat Bach MODE-C - Last Filed: 09/25/21 15:07> Status: Acute <Mat Bach ANNABELLE - Last Filed: 09/25/21 15:07> (4) Diabetes mellitus: Code(s): E11.9 - Type 2 diabetes mellitus without complications <ANNABELLE Mendoza - Last Filed: 09/25/21 15:07> Status: Acute <Mat ChristianANNABELLE Mott - Last Filed: 09/25/21 15:07> Assessment and Plan: * Blood sugar 165 * Patient n.p.o. started dextrose 5 with normal saline * Lantus and his at bedtime in a.m. he will due to n.p.o. status * Started Accu-Chek with sliding scale hypoglycemic protocol <ANNABELLE Mendoza - Last Filed: 09/25/21 15:07> (5) CHF (congestive heart failure): Code(s): I50.9 - Heart failure, unspecified <ANNABELLE Mendoza - Last Filed: 09/25/21 15:07> Status: Acute <ANNABELLE Mendoza - Last Filed: 09/25/21 15:07> Assessment and Plan: * BNP 2569>95128 * Weight daily with intake and output reviewed * Chest x-ray does not indicate pulmonary edema <ANNABELLE Mendoza - Last Filed: 09/25/21 15:07> (6) Afib: Code(s): I48.91 - Unspecified atrial fibrillation <ANNABELLE Mendoza - Last Filed: 09/25/21 15:07> Status: Acute <ANNABELLE Mendoza - Last Filed: 09/25/21 15:07> Assessment and Plan: * EKG indicates A. fib with RVR with heart rate of 110 * Started heparin 5000 units subcu every 8 hours. Eliquis on hold due to possible procedure <ANNABELLE Mendoza - Last Filed: 09/25/21 15:07> Subjective Date/time seen: 09/25/21 13:32 patient remains lethargic response to stimuli with eye opening. Spoke with patient caregiver granddaughter who he resides with. They will determine whether to place the patient on hospice or not. <ANNABELLE Mendoza - Last Filed: 09/25/21 15:07> Review of Systems Review of Sy
--- NOTE | 2021-09-25 13:32 | WPDPN ---
Progress Note: A&P Assessment and Plan (1) Sepsis: Qualifiers: Sepsis acute organ dysfunction status: without acute organ dysfunction Sepsis type: sepsis due to unspecified organism Qualified Code(s): A41.9 - Sepsis, unspecified organism <JOSE MendozaC - Last Filed: 09/25/21 15:07> Code(s): A41.9 - Sepsis, unspecified organism <MODE Mendoza-C - Last Filed: 09/25/21 15:07> Status: Acute <MODE Mendoza-C - Last Filed: 09/25/21 15:07> Assessment and Plan: Etiology unknown Lactic acid4.0>4.8>.8 Patient received 3 L bolus in ED will now receive 1 L bolus with albumin , dopamine and continue with IV fluid Attempt to transfer to outside hospital for higher level WBCs 17 Chest x-ray no significant info When patient stabilized we will do a CT of the abdomen Continue vancomycin and Rocephin Blood culture Abdominal CT no significant findings Albumin given Continue transfer to outside hospital for higher level of care <MODE Mendoza-C - Last Filed: 09/25/21 15:07> (2) Elevated troponin I level: Code(s): R77.8 - Other specified abnormalities of plasma proteins <JOSE MendozaC - Last Filed: 09/25/21 15:07> Status: Acute <Mat Bach JOSEC - Last Filed: 09/25/21 15:07> Assessment and Plan: [id number]>2064.9>2347.8>3733.5 EKG indicates A. fib with RVR heart rate of 110 History of [place] with stent placement Attempting to transfer to outside hospital for cardiology consult <Mat Bach MODE-C - Last Filed: 09/25/21 15:07> (3) Weakness: Code(s): R53.1 - Weakness <Mat Bach MODE-C - Last Filed: 09/25/21 15:07> Status: Acute <Mat Bach MODE-C - Last Filed: 09/25/21 15:07> (4) Diabetes mellitus: Code(s): E11.9 - Type 2 diabetes mellitus without complications <ANNABELLE Mendoza - Last Filed: 09/25/21 15:07> Status: Acute <ANNABELLE Mendoza - Last Filed: 09/25/21 15:07> Assessment and Plan: Blood sugar 165 Patient n.p.o. started dextrose 5 with normal saline Lantus and his at bedtime in a.m. he will due to n.p.o. status Started Accu-Chek with sliding scale hypoglycemic protocol <ANNABELLE Mendoza - Last Filed: 09/25/21 15:07> (5) CHF (congestive heart failure): Code(s): I50.9 - Heart failure, unspecified <ANNABELLE Mendoza - Last Filed: 09/25/21 15:07> Status: Acute <ANNABELLE Mendoza - Last Filed: 09/25/21 15:07> Assessment and Plan: BNP 2569>23940 Weight daily with intake and output reviewed Chest x-ray does not indicate pulmonary edema <ANNABELLE Mendoza - Last Filed: 09/25/21 15:07> (6) Afib: Code(s): I48.91 - Unspecified atrial fibrillation <ANNABELLE Mendoza - Last Filed: 09/25/21 15:07> Status: Acute <ANNABELLE Mendoza - Last Filed: 09/25/21 15:07> Assessment and Plan: EKG indicates A. fib with RVR with heart rate of 110 Started heparin 5000 units subcu every 8 hours. Eliquis on hold due to possible procedure <ANNABELLE Mendoza - Last Filed: 09/25/21 15:07> Subjective Date/time seen: 09/25/21 13:32 patient remains lethargic response to stimuli with eye opening. Spoke with patient caregiver granddaughter who he resides with. They will determine whether to place the patient on hospice or not. <ANNABELLE Mendoza - Last Filed: 09/25/21 15:07> Review of Systems Review of Systems: ROS unobtainable: Yes unobtainable due to mental status <Mat Bach, SCHEDULER CONVEYOR-C - Last Filed: 09/25/21 15:07> Exam Narrative: GENERAL: Ill appearance lethargic in no apparent distress. HEAD: normocephalic, atraumatic. EYES: PERRL. Sclera clear/white. Vision is grossly intact. EARS: External ears normal, auditory canals clear and without drainage, TMs normal withou
[2021-09-25] MEDS: MORPHINE SULFATE (*CRX) 2 MG/ML INJ IV PUSH ×2 (14:25→19:56)
[2021-09-25] MEDS: LORazepam INJ (*CRX) 2 MG/ML VIAL IV PUSH ×2 (16:18→19:59)
--- NOTE | 2021-09-25 16:38 | PC.NURSE ---
pt has been restless off and on today. has pulled off tele leads. ripped off clothes and pulls out iv. bp holds arounds 90/50 s. will arouse at times to name. wears self out rests quietly for short spans. then kicks legs over rails and moans and starts over with pulling everything off. will not open eyes or talk to staff. family aware. they talked with jesica input output clerk and want him to hospice. tele and ivf stopped. prn meds given. see mar. suppository inserted into rectum. has had multi soft mushy stool today with each turn mod amt. daughter visited for few minutes at this time. still cont to want hospice and leaves to help grand daughter set up bed that hospice is sending to their house.
[2021-09-25 17:08] LABS: Glucose Point of Care 152 mg/dl (65-105)
--- NOTE | 2021-09-25 20:24 | PC.NURSE ---
RESTLESS KICKING LEG. INCONT OF URINE. SCRATCHING AT CHEST. WILL NOT OPEN EYES OR SPEAK. OCCASIONALLY GRUNTS. TURN AND REPOSITIONED. HOB UP. PRN GIVEN. SEE MAR
[2021-09-26] VITALS: BP 85/52; RESP 110; TEMP 37.4; O2SAT 96
--- NOTE | 2021-09-26 00:35 | PC.NURSE ---
Pt asleep during the initial assessment No signs of discomfort or shortness of breath noted and oxygen remains on at 2 liters per nasal cannula.
--- NOTE | 2021-09-26 02:10 | PC.NURSE ---
Pt asleep and no signs of discomfort or respiratory distress noted.
--- NOTE | 2021-09-26 04:10 | PC.NURSE ---
[facility] called to inquire if pt still needed a bed. Information given regarding discharge plans for pt.
--- NOTE | 2021-09-26 04:20 | PC.NURSE ---
Pt asleep and no signs of discomfort noted.
--- NOTE | 2021-09-26 05:15 | PC.NURSE ---
Pt incontinent of a large amount of urine. pt cleaned, changed, turned and repositioned to his side. mouth care given at this time.
[2021-09-26] MEDS: LORazepam INJ (*CRX) 2 MG/ML VIAL IV PUSH (05:45)
--- NOTE | 2021-09-26 05:45 | PC.NURSE ---
Pt is restless and stating that he wants to stand up; Pt was incontinent of urine and was changed and repositioned. Pt continues to be agitated and was given ativan 2 mg IVP to relieve restlessness and agitation.
--- NOTE | 2021-09-26 06:05 | PC.NURSE ---
Pt assisted with repositioning to his back.
[2021-09-26 07:47] LABS: Glucose Point of Care 120 mg/dl (65-105)
[2021-09-26 08:00] VITALS: BP 95/67; PULSE 111; RESP 18; TEMP 36.5; O2SAT 87
--- NOTE | 2021-09-26 08:07 | P.DS_ITS ---
DS: Admitting Diagnosis Discharge Date 09/26/2021 Admitting Diagnosis Septic shock, elevated troponin DS: Discharge Diagnosis Discharge Diagnosis (1) Sepsis: Qualifiers: Sepsis acute organ dysfunction status: without acute organ dysfunction Sepsis type: sepsis due to unspecified organism Qualified Code(s): A41.9 - Sepsis, unspecified organism Code(s): A41.9 - Sepsis, unspecified organism Status: Acute Assessment and Plan: Patient transitioning to hospice care today, all medications stopped per family request. * Etiology unknown * Lactic acid4.0>4.8>.8 * Patient received 3 L bolus in ED will now receive 1 L bolus with albumin , dopamine and continue with IV fluid * Attempt to transfer to outside hospital for higher level * WBCs 17 * Chest x-ray no significant info * When patient stabilized we will do a CT of the abdomen * Continue vancomycin and Rocephin * Blood culture * Abdominal CT no significant findings * Albumin given * Continue transfer to outside hospital for higher level of care (2) Elevated troponin I level: Code(s): R77.8 - Other specified abnormalities of plasma proteins Status: Acute Assessment and Plan: * Patient transitioning to hospice care today * [id number]>2064.9>2347.8>3733.5 * EKG indicates A. fib with RVR heart rate of 110 * History of SD with stent placement * Attempting to transfer to outside hospital for cardiology consult (3) Weakness: Code(s): R53.1 - Weakness Status: Acute (4) Diabetes mellitus: Code(s): E11.9 - Type 2 diabetes mellitus without complications Status: Acute Assessment and Plan: * Patient transitioning to hospice care today, all medications stopped per family request. * Lantus and his at bedtime in a.m. he will due to n.p.o. status * Started Accu-Chek with sliding scale hypoglycemic protocol (5) CHF (congestive heart failure): Code(s): I50.9 - Heart failure, unspecified Status: Acute Assessment and Plan: * Patient transitioning to hospice care today, all medications stopped per family request. * BNP 2569>[id number] * Weight daily with intake and output reviewed * Chest x-ray does not indicate pulmonary edema (6) Afib: Code(s): I48.91 - Unspecified atrial fibrillation Status: Acute Assessment and Plan: * Patient transitioning to hospice care today, all medications stopped per family request. * EKG indicates A. fib with RVR with heart rate of 110 * Started heparin 5000 units subcu every 8 hours. Eliquis on hold due to possible procedure DS: Summary Hospital Course Hospital Course: this is a 81-year-old male who presented to our emergency department with dyspnea and increased weakness over the last few hours. Patient has a past medical history of A. fib, congestive heart failure, history of SD with 3 stents, aortic valve replacement and diabetes. Patient is a poor historian all information obtained from medical records. This hospital today patient was placed on a dopamine drip and antibiotic treatment for his sepsis. Patient was placed on the waiting list for [facility]. It was decided by patient's family members to transition him into hospice per patient request. Was instructed by family members to discontinue all medication. Patient will be transported home today in the care of hospice. Time Spent with Patient Time attestation: Total time spent providing and/or coordinating discharge services: Exam Narrative: GENERAL: Ill appearance lethargic in no apparent distress.
--- NOTE | 2021-09-26 08:07 | PM.DS ---
DS: Admitting Diagnosis Discharge Date 09/26/2021 Admitting Diagnosis Septic shock, elevated troponin DS: Discharge Diagnosis Discharge Diagnosis (1) Sepsis: Qualifiers: Sepsis acute organ dysfunction status: without acute organ dysfunction Sepsis type: sepsis due to unspecified organism Qualified Code(s): A41.9 - Sepsis, unspecified organism Code(s): A41.9 - Sepsis, unspecified organism Status: Acute Assessment and Plan: Patient transitioning to hospice care today, all medications stopped per family request. Etiology unknown Lactic acid4.0>4.8>.8 Patient received 3 L bolus in ED will now receive 1 L bolus with albumin , dopamine and continue with IV fluid Attempt to transfer to outside hospital for higher level WBCs 17 Chest x-ray no significant info When patient stabilized we will do a CT of the abdomen Continue vancomycin and Rocephin Blood culture Abdominal CT no significant findings Albumin given Continue transfer to outside hospital for higher level of care (2) Elevated troponin I level: Code(s): R77.8 - Other specified abnormalities of plasma proteins Status: Acute Assessment and Plan: Patient transitioning to hospice care today [id number]>2064.9>2347.8>3733.5 EKG indicates A. fib with RVR heart rate of 110 History of SD with stent placement Attempting to transfer to outside hospital for cardiology consult (3) Weakness: Code(s): R53.1 - Weakness Status: Acute (4) Diabetes mellitus: Code(s): E11.9 - Type 2 diabetes mellitus without complications Status: Acute Assessment and Plan: Patient transitioning to hospice care today, all medications stopped per family request. Lantus and his at bedtime in a.m. he will due to n.p.o. status Started Accu-Chek with sliding scale hypoglycemic protocol (5) CHF (congestive heart failure): Code(s): I50.9 - Heart failure, unspecified Status: Acute Assessment and Plan: Patient transitioning to hospice care today, all medications stopped per family request. BNP 2569>[id number] Weight daily with intake and output reviewed Chest x-ray does not indicate pulmonary edema (6) Afib: Code(s): I48.91 - Unspecified atrial fibrillation Status: Acute Assessment and Plan: Patient transitioning to hospice care today, all medications stopped per family request. EKG indicates A. fib with RVR with heart rate of 110 Started heparin 5000 units subcu every 8 hours. Eliquis on hold due to possible procedure DS: Summary Hospital Course Hospital Course: this is a 81-year-old male who presented to our emergency department with dyspnea and increased weakness over the last few hours. Patient has a past medical history of A. fib, congestive heart failure, history of SD with 3 stents, aortic valve replacement and diabetes. Patient is a poor historian all information obtained from medical records. This hospital today patient was placed on a dopamine drip and antibiotic treatment for his sepsis. Patient was placed on the waiting list for [facility]. It was decided by patient's family members to transition him into hospice per patient request. Was instructed by family members to discontinue all medication. Patient will be transported home today in the care of hospice. Time Spent with Patient Time attestation: Total time spent providing and/or coordinating discharge services: Exam Narrative: GENERAL: Ill appearance lethargic in no apparent distress. HEAD: normocephalic, atraumatic. EYES: PERRL. Sclera clear/white. Vision is grossly intact. EARS: External ears normal, auditory canals clear and without drainage, TMs normal without perforation. Hearing grossly intact. NOSE: External nose normal with no obvious nasal discharge, nares without redness, no rhinorrhea. THROAT: Mucous membranes moist, posterior pharynx clear. NECK: Neck supple, non-tender witho
--- NOTE | 2021-09-26 12:07 | PC.NURSE ---
Pt discharged home with home Hospice. Hospice care to be provided by [facility]. All information faxed to them.
[2021-09-26 15:19] VITALS: O2SAT 96
== END 2021-09-26 12:10 | disposition hospice, home (50) | DRG 871 ==
LOC: CHSED 12:15 → CHS2ND 13:07
PROVIDERS: Nurse Practitioner; Admitting Provider Emergency Medicine; Emergency Provider Emergency Medicine; PCP Internal Medicine; Visit Provider Emergency Medicine
DX: A41.9 Sepsis, unspecified organism (principal); I48.20 Chronic atrial fibrillation, unspecified; I50.9 Heart failure, unspecified; E11.9 Type 2 diabetes mellitus without complications; I25.2 Old myocardial infarction; Z95.5 Presence of coronary angioplasty implant and graft; Z79.01 Long term (current) use of anticoagulants; Z95.2 Presence of prosthetic heart valve; Z20.822 Contact with and (suspected) exposure to COVID-19; A41.02 Sepsis due to Methicillin resistant Staphylococcus aureus; R65.21 Severe sepsis with septic shock; R77.8 Other specified abnormalities of plasma proteins; Z79.4 Long term (current) use of insulin; Z51.5 Encounter for palliative care
CPT/HCPCS: 36415; 71045; 71250; 74176; 80053; 81001; 82948; 83605; 83880; 84443; 84484; 85025; 85055; 85610; 85730; 86140; 87040; 87147; 87186; 88305; 93005; 96360; 96361; 99285; A9270; C9803; J0696; J1265; J1644; J1815; J2060; J2270; J2543; J3370; J3480; J7030; P9047; U0003; U0005